=== PATIENT | female | born 1945 | race Caucasian/White ===

== ENCOUNTER 2023-03-29 10:11 | Day surgery (SDC) | payer MEDICARE, SELFPAY ==
[2023-03-22 08:37] VITALS: BMI 26.3
[2023-03-29] VITALS (10 sets, daily range): BP systolic 102–128; BP diastolic 33–51; PULSE 38–88; RESP 12–18; TEMP 35.9–36.6; O2SAT 93–99; BMI 25.6; BMI 27.9
--- NOTE | 2023-03-29 | DI.RAD.S_ITS ---
PROCEDURE: XR FOOT RT MIN 3V INDICATIONS: ORIF OF RIGHT FOOT TECHNIQUE: 12 intraoperative fluoroscopic images of the foot were acquired. COMPARISON: None. FINDINGS: Bones: Intraoperative fluoroscopic images of right ankle fixation demonstrate appropriate positioning. Soft tissues: No tibiotalar joint effusion. Achilles tendon appears normal. IMPRESSION: Intraoperative fixation of right ankle using plate and screw construct. Please see separate operative report for full details. Approved by: Laverne Landers M.D. on 03/29/2023 at 17:50
[2023-03-29] MEDS: LACTATED RINGERS 1,000 ML 42 ML IV ×4 (10:34→23:16)
--- NOTE | 2023-03-29 12:15 | PM.PREOP ---
Pre-operative Note Interval Note History & Physical reviewed/Exam performed by Physician: Yes Changes to H&P: No
--- NOTE | 2023-03-29 12:34 | P.HP_ITS ---
History of Present Illness History of Present Illness Date Patient Seen: 03/29/23 Time Patient Seen: 12:08 Chief complaint: Right Toe Fusion/Ankle Fusion/Achilles Tendon Verónica Narrative: PATIENT IS A 77-YEAR-OLD FEMALE THAT PRESENTS WITH A [id number] CH ARCOT FOOT DEFORMITY AND CHARCOT NEURO ARTHROPATHY. SHE IS CALLUSES AND HAS HAD ULCERATIONS THAT HAVE BEEN TREATED WOUND CARE AND THAT REOCCUR CONSISTENTLY. SHE WAS FRUSTRATED THAT THESE KEEP RECURRING. THE RIGHT SIDE HAS BEEN ESPECIALLY PROBLEMATIC. CALLUS IS CURRENTLY CLOSED. NO SIGNS OF INFECTION. SHE WAS INDICATED FOR CHARCOT RIGHT FOOT RECONSTRUCTION. HER HEMOGLOBIN A1C IS UNDER 7. [facility] Medical History (Updated 03/29/23 @ 12:37 by Ailyn Christine MD) Pes planus of right foot Arthritis of right foot Charcot's arthropathy History of breast cancer HTN (hypertension) Diabetes mellitus, type II Surgical History History of cholecystectomy Hx of lumpectomy Social History household members: spouse Smoking Status: Never smoker alcohol intake: never Meds Home Medications and Allergies Home Medications Medication Instructions Recorded Confirmed Type amlodipine 2.5 mg tablet 2.5 mg PO BID 03/22/23 03/29/23 History aspirin 81 mg capsule 81 mg PO DAILY 03/22/23 03/29/23 History gabapentin 600 mg tablet 600 mg PO TID 03/22/23 03/22/23 History ibuprofen 200 mg tablet (Advil) 400 mg PO BEDTIME 03/22/23 03/29/23 History insulin glargine 100 unit/mL (3 50 unit SUBCUT QAM 03/22/23 03/29/23 History mL) subcutaneous pen (Lantus Solostar U-100 Insulin) insulin lispro 100 unit/mL 15 unit SUBCUT TID 03/22/23 03/29/23 History subcutaneous pen losartan 100 mg tablet 100 mg PO QPM 03/22/23 03/29/23 History rosuvastatin 20 mg tablet 20 mg PO QPM 03/22/23 03/29/23 History zolpidem 10 mg tablet 10 mg PO BEDTIME 03/22/23 03/29/23 History Allergies Allergy/AdvReac Type Severity Reaction Status Date / Time No Known Drug Allergies Allergy Verified 03/29/23 10:36 Review of Systems Review of Systems Narrative: DIABETES IS CONTROLLED. SHE HAS NEUROPATHY. SHE DOES NOT SMOKE SHE DOES NOT USE ALCOHOL. ROS: Yes All systems reviewed with the patient and are negative except as otherwise documented Exam Vital Signs (past 8 hours): - 03/29/23 11:02 Temperature 97.1 F L Pulse Rate 87 Respiratory Rate 18 Blood Pressure 128/51 L Pulse Oximetry 99 Oxygen Delivery Method Room Air Oxygen Delivery Method Room Air Narrative Exam Narrative: VITAL SIGNS ARE DOCUMENTED IN THE CHART ARE WITHIN NORMAL LIMITS. GENERAL EXAM NO OBVIOUS DISTRESS NORMAL AFFECT. HEENT EXAM NORMOCEPHALIC ATRAUMATIC HEART REGULAR RATE AND RHYTHM RESPIRATORY LUNGS CLEAR TO AUSCULTATION BILATERALLY. GAIT IS FULL WEIGHT-BEARING NO ASSISTIVE DEVICES. RIGHT LOWER EXTREMITY DEMONSTRATES RIGHT GREATER THAN LEFT ABDUCTION AND PES PLANUS DEFORMITY WITH A ROCKER BOTTOM CENTERED AT THE 1ST TMT JOINT. THERE IS A HEALED ULCERATION JUST REMAINS A CALLUS. THERE IS NO ERYTHEMA THERE WAS NO SIGN OF INFECTION. THERE HAS A PALPABLE DORSALIS PEDIS PULSE. THERE IS HINDFOOT VALGUS AND HINDFOOT STIFFNESS LESS THAN 50% OF NORMAL MOTION. THERE IS NO ASCENDING CELLULITIS. THE CALF IS SOFT. THERE IS EQUINUS CONTRACTURE. THERE IS UNCHANGED PERIPHERAL NEUROPATHY AND A STOCKING-GLOVE DISTRIBUTION. Objective Imaging X-RAY FOOT: My impression: PREVIOUS X-RAYS OF THREE VIEWS OF BILATERAL FEET AP STANDING AND OBLIQUE AND LATERAL DEMONSTRATE RIGHT FOOT CHARCOT ARTHROPATHY 1ST TMT ARTHRITIS AND ABDUCTION DEFORMITY WITH SEVERE PES PLANUS DEFORMITY AND HINDFOOT INVOLVEMENT. NO ACUTE FRACTURES. Assessment & Plan Assessment and plan (1) Pes planus of right foot: Status: Acute (2) Charcot's arthropathy: Problem details: Bilateral Status: Acute Plan PATIENT HAS RIGHT FOOT CHARCOT DIABETIC NEUROPATHY AND FOOT DEFORMITY WITH RIGHT FOOT ARTHRITIS. SHE IS INDICATED FOR SURGICAL CORRECTION OF HER FOOT DEFORMITY DUE TO RECURRENT ULCERS. PLAN FOR DENIED HOSPITAL STAY. ROCKER BOTTOM DEFORMITY. NO EVIDENCE OF INFECTION. HAS SPENT MOST OF THE LAST YEAR OFFLOADING WOUND CARE WITHOUT SUCCESS. INDICATED FOR DEFORMITY CORRECTION. SHE IS FAILED CUSTOM ORTHOTICS OFFLOADING AND WOUND CARE. SURGICAL RECONSTRUCTION WOULD INCLUDE DEFORMITY CORRECTION WITH FUSION AND WEDGE RESECTION. DUE TO SEVERE PES PLANUS WOULD PLAN FOR INVOLVEMENT OF HINDFOOT AND INCORPORATE TRIPLE ARTHRODESIS. THE RISKS AND BENEFITS OF THE PROCEDURE HAVE BEEN DISCUSSED WITH THE PATIENT AND GIVEN THE OPPORTUNITY TO ASK QUESTIONS. THE RISKS OF SURGERY INCLUDE BUT ARE NOT LIMITED TO INFECTION, MALUNION, NONUNION, PERSISTENCE OF PAIN, DAMAGE TO NERVES AND BLOOD VESSELS, POSTTRAUMATIC ARTHRITIS, DVT, PE, COARDIOPULMONARY COMPLICATIONS AND . THE PATIENT EXPRESSED A THOROUGH UNDERSTANDING OF THE RISKS AND BENEFITS OF SURGERY AND HAS ELECTED TO PROCEED. CONSENT WAS SIGNED. DVT PROPHYLAXIS WILL BE ASPIRIN 325 MG DAILY FOR 6 WEEKS. Quality VTE Deep Vein Thrombosis/Pulmonary Embolism Present on Admission: No
[2023-03-29] MEDS: CEFAZOLIN 2 GM/100 ML PREMIX 100 ML IV ×2 (12:51→16:40)
[2023-03-29] MEDS: BUPIVACAINE 0.25% (PF) 30 ML, EPINEPHrine 0.15 MG INJ (13:25)
--- NOTE | 2023-03-29 13:30 | SUR.OPER ---
Supine on padded OR bed, head on pillow, arms secured on padded arm boards at <90 degrees abduction, legs uncrossed, safety belt across abdomen, tape over blanket over nonoperative leg, bump under operative hip.
--- NOTE | 2023-03-29 17:47 | PM.OP.1 ---
Operative Date/Time/Diagnoses Date of procedure: 03/29/23 Time of procedure: 13:05 Pre-op diagnosis: Diabetic Charcot right foot pre ulcerative callus, arthritis right foot, pes planus right foot, equinus contracture right ankle, Charcot joint right foot Post-op diagnosis: same Procedure & Clinicians Procedure: 1. Talocalcaneal and talonavicular fusions, right CPT code 67439 2. Fusion tarsometatarsal joints 2 or more with osteotomies CPT code 06863, right 3. Tendo-Achilles lengthening 79234 right modifier 59 for separate site 4. Paring callus, single CPT code 88122 modifier 59 for separate site Same procedure as scheduled: Yes Indications: Patient 77-year-old female with neuropathic arthropathy, Charcot of the right foot diabetes. She has a foot deformity and recurrent ulcerations. This is a rocker deformity with severe pes planus. She has failed custom orthotics offloading and wound care. She was spent most of the last year offloading. She is indicated for surgical reconstruction to include deformity correction with fusion and wedge resections. Due to her severe pes planus and involvement of the hindfoot would plan to incorporate triple arthrodesis into this to reduce the risk of recurrence while helping to fully correct the pes planovalgus and abduction deformities. Her hemoglobin A1c is controlled and is now below 7. She has an equinus contracture and Achilles lengthening would also be indicated. She understands she would require a minimum of 3 months of nonweightbearing. The patient was optimized for surgery. The risks benefits and alternatives were discussed. These included but are not limited to infection, nonunion malunion, persistent pain, wound healing problems, amputation, DVT, pulmonary embolism, stroke, paralysis, , symptomatic hardware. The patient elected to proceed and consent was signed. During the operation, the services of a physician events and promotions assistant were medically indicated and necessary to provide the exposure of the operative site for the surgical procedure and to maintain the limb in a proper position to carry out the operation safely and efficiently. Without a qualified medical assistant internal medicine being present this would extended the operative procedure and made the procedure technically more difficult to perform. Surgeon: Ailyn Christine Distribution Estimator: Hernan Trevino Anesthesia Type: General, Peripheral nerve block and Local Operative Notes Findings: Pes planus and abduction deformity consistent with Charcot arthropathy. Hindfoot less than 50% of normal subtalar motion severe plus planus. Healed 1st TMT ulceration now with a preulcerative callus. No signs of current infection. Closure Type: primary Specimen(s): none sent Prosthetic devices, grafts, tissues, transplants, or devices: Hebron 28 Medium gorilla plumbing drafter, straddled plate and 3.5 nonlocking and locking screws [place] 28 just bolt 7.2 solid fully-threaded 140 mm [place]bron 28 7.0 monster headed fully-threaded cannulated screw 74 mm Applied: other (Splint) Estimated Blood Loss (mL): 50 Blood products transfused: none Tourniquet time (min): 120 Procedure in detail: Patient was seen in the preoperative area the site of surgery was marked informed consent confirmed. A regional nerve block was placed by the anesthesia team for postoperative pain control. The patient was brought back to the operating room by the anesthesia team positioned supine on operative table. A Sanchez catheter was placed and removed at the end of the procedure. All bony prominences were well padded. A well-padded thigh tourniquet was applied. An ipsilateral thigh bump was applied. The right lower extremity was prepped and draped in standard sterile fashion a formal time-out procedure was performed confirming the patient's side and site of surgery administration of appropriate preoperative antibiotic. All were in agreement. In addition the antibiotic was appropriately re-dosed. Attention was 1st turned to the tendo-Achilles lengthening. Tendo-Achilles lengthening: The leg was elevated 3 small incisions were marked out on the Achilles near the insertion 2 cm proximal to that and another 2 cm proximal to that. Small incision was made the tendon then was identified. A 15 blade was inserted into the center of the tendon and a yobany section was made to the lateral side in the distal and the proximal most incisions. The central incision created a yobany section to the medial side. The ankle was dorsiflexed providing an audible and palpable stretch to the Achilles which increased dorsiflexion preprocedure to less than 5? dorsiflexion to 20?. Talocalcaneal and talonavicular fusion and tarsometatarsal fusions with wedge osteotomies: Attention was then turned to the leg the Esmarch was used for exsanguination and elevated the tourniquet on the thigh to 250 mmHg the stayed elevated for 2 hours then was released and remained down the rest of the case. First incision was made along the sinus tarsi from the tip of the fibula towards the 4th metatarsal base this was taken down through the skin and subcutaneous tissues. The extensor brevis was elevated exposing the sinus tarsi. The peroneal tendons were retracted distally. A osteotome and curette were used to remove the cartilage from the posterior facet of the subtalar joint additionally the power rasp was used to help debride the joint as well. Once this was completely denuded of cartilage and good bleeding cancellous bone was apparent the area was fenestrated using the fenestrated drill and DBM putty was placed along the posterior facet. Subtalar joint was reduced with care elevating the talus and was pinned in place and checked on multiplanar fluoroscopy then a separate incision at the heel was made for the 7.0 monster screw. This was positioned checked on multiplanar imaging and then overdrilled and a fully threaded 7.0 screw was placed in a lag technique for the subtalar joint fixation. The wound was closed in layers at the end of the case. Attention was then turned medially and a long medial incision was made from the tip of the medial malleolus to the mid shaft of the 1st metatarsal between the tibialis anterior and tibialis posterior this was taken down through the skin subcutaneous tissue down to the level of bone. The talonavicular joint navicular cuneiform joint and cuneiform metatarsal joints were identified and individually debrided using the K-wire retractor curette osteotomes and power rasp. Once the talonavicular joint was prepared down to bleeding bone and good DBM putty was placed the uncoverage of the talus was corrected and the talonavicular joint was pinned confirming this on the AP and lateral planes to be elevated and the abduction corrected. Next attention was turned distally to the navicular cuneiform and to the tarsometatarsal joints and navicular cuneiform joint was prepped in the same fashion as the talonavicular joint. The apex of the deformity was at the tarsometatarsal joints so a saw was used to remove a plantar and medial based wedge across the distal medial cuneiform 2 into the 2nd TMT joint and across the base of the 1st and 2nd tarsometatarsal joints. Pituitaries used to remove the wedge of bone additional debridement was completed with osteotomes curette and the power rasp. The wedge resection was reduced and pinned in place and confirmed on multi planer fluoroscopy to confirm correction of the abduction and a neutral Lydia's angle from the 1st metatarsal to the talus. DBM putty was then placed into these joints and they were pinned. Next the paragon jig for the jaw cyst and straddled plate was assembled after several attempts to run the jowls toward the talar pin from the jig the jig was abandoned and removed. Under freehand technique the guidewire for the jowls was advanced from an incision along the plantar 1st toe through the metatarsal head and medial column and into the talus. Care was taken during this procedure to protect the long flexor to the great toe and this was retracted out of the way. Once the trajectory was appropriate straight through the 1st metatarsal to the medial column into the talus this was then over-drilled and the 7.0 solid just screw was advanced the transfixing K-wires were removed as the Jobst screw was advanced. Once this was completed a medium straddle plate was then repositioned and centered on the just medially confirming there were screw holes into the talus the entire medial column and then into the 1st metatarsal. This was pinned in place and secured to the bone 1st with nonlocking and then with locking 3.5 screws. This created additional fixation across the talonavicular navicular cuneiform and 1st and 2nd tarsometatarsal joints. Fixation was excellent additional bone graft was packed around the edges. The power rasp was used to smooth off some dorsal and plantar osteophytes and final radiographs were taken. The wounds were irrigated and closed with 2-0 Vicryl 4-0 Monocryl and 3-0 nylon suture. Callus paring Next attention was turned to the 1st TMT plantar callus the thick area of callus was pared using a 15 blade at the end of the case removing the thickened callus tissue. No bleeding was encountered. There was a small old central hemorrhagic area. No full-thickness wounds. The wounds were irrigated again the leg was washed 20 cc of local anesthetic was infiltrated for postoperative pain control. A sterile dressing with Xeroform gauze and Webril was applied. A bulky Astorga splint was applied in neutral position. Patient was awoken from anesthesia and taken to recovery room in good condition. There were no immediate complications from this procedure. All counts were correct. Complications: none Post-operative Condition: stable Disposition: PACU Plan for aftercare: Nonweightbearing x3 months. Elevate and ice. Aspirin 325 mg daily for DVT prophylaxis x6 weeks. Will stay overnight due to length of surgery /anesthesia and inclement weather and plan discharge home
[2023-03-29] MEDS: INSULIN LISPRO 100 UNIT/ML 3ML VIAL SUBCUT (17:49)
[2023-03-29] MEDS: ACETAMINOPHEN 325 MG TABLET 650 MG PO (18:26)
[2023-03-29] MEDS: SENNOSIDES 8.6 MG TABLET 17.2 MG PO (20:48)
[2023-03-29] MEDS: AMLODIPINE 5 MG TABLET 2.5 MG PO (20:48)
[2023-03-29] MEDS: ATORVASTATIN 20 MG TABLET 40 MG PO (20:48)
[2023-03-29] MEDS: GABAPENTIN 600 MG TABLET PO (20:48)
[2023-03-29] MEDS: DOCUSATE 100 MG CAPSULE PO (20:49)
[2023-03-29] MEDS: SODIUM CHLORIDE 0.9% 1,000 ML 1000 ML IV (21:51)
[2023-03-29] MEDS: IBUPROFEN 400 MG TABLET PO (21:55)
[2023-03-30] MEDS: ACETAMINOPHEN 325 MG TABLET 650 MG PO ×2 (00:29→12:29)
[2023-03-30] MEDS: ZOLPIDEM 5 MG TABLET 10 MG PO (00:29)
[2023-03-30] MEDS: CEFAZOLIN 2 GM/100 ML PREMIX 100 ML IV ×2 (00:30→08:16)
[2023-03-30 00:54] VITALS: BP 104/39; PULSE 58; RESP 16; TEMP 36.5; O2SAT 96
[2023-03-30 04:27] VITALS: BP 105/49; PULSE 74; RESP 16; TEMP 36.9; O2SAT 96
[2023-03-30 05:29] LABS: Hematocrit 39.1 % (36-46); Hemoglobin 12.7 g/dL (12.0-16.0); Mean Corpuscular HGB Conc 32.5 % (30-36); Mean Corpuscular Hemoglobin 30.1 PG (26-34); Mean Corpuscular Volume 92.4 fL (80-100); Platelet Count 255 X10^3/uL (150-400); Red Blood Cell Count 4.23 X10^6/uL (4.0-5.2); Red Cell Distribution Width 15.1 % (11.6-14.8); White Blood Cell Count 17.4 X10^3/uL (4.5-11.0)
[2023-03-30 05:41] LABS: Alanine Aminotransferase 36 IU/L (<35); Albumin 3.2 g/dL (3.5-5.0); Albumin Globulin Ratio 1.2 (1.0-2.8); Alkaline Phosphatase 55 U/L (38-126); Aspartate Aminotransferase 31 IU/L (14-36); BUN Creatinine Ratio 37.5 (6-22); Bilirubin Total 0.5 mg/dL (0.2-1.3); Blood Urea Nitrogen 21 mg/dL (7-17); Calcium 9.9 mg/dL (8.4-10.2); Carbon Dioxide 24 mmol/L (22-32); Chloride 104 mmol/L (98-107); Estimated Glomerular Filt Rate > 60 mL/min (>60); Globulin 2.7 g/dL (1.7-4.1); Glucose 169 mg/dL (80-110); HEMOLYSIS 19 (0-50); Potassium 4.5 mmol/L (3.4-5.1); Sodium 134 mmol/L (137-145); Total Protein 5.9 g/dL (6.3-8.2)
--- NOTE | 2023-03-30 07:33 | PM.DS.1 ---
History of Present Illness History of Present Illness Chief complaint: Right Toe Fusion/Ankle Fusion/Achilles Tendon Verónica Narrative: TODAY: Patient is POD#1 s/p Right Talocalcaneal and talonavicular fusion, Tendo-Achilles lengthening and tarsometatarsal joint fusion by Dr. Christine. Patient states she is doing well overall, no pain currently. Has been able to urinate on her own. Expresses eagerness to d/c to home today. Has at home to help with her post-op care, also reports her sister who is a nurse is planning to come stay with her for a short period of time during her recovery as well. Has walker and knee scooter at home to use for ambulation support while she is NWB in her post-op recovery period. Denies chest pain, SOB, fever, chills, nausea, vomiting. Operative Date/Time/Diagnoses Date of procedure: 03/29/23 Time of procedure: 13:05 Pre-op diagnosis: Diabetic Charcot right foot pre ulcerative callus, arthritis right foot, pes planus right foot, equinus contracture right ankle, Charcot joint right foot Post-op diagnosis: same Procedure & Clinicians Procedure: 1. Talocalcaneal and talonavicular fusions, right CPT code 52604 2. Fusion tarsometatarsal joints 2 or more with osteotomies CPT code 93416, right 3. Tendo-Achilles lengthening 08656 right modifier 59 for separate site 4. Paring callus, single CPT code 71674 modifier 59 for separate site Same procedure as scheduled: Yes Discharge Providers Provider Discharge Date: 03/30/23 Primary care physician: Miladys Hunt PA-C Consults: 03/22/23 12:46 Consult to Anesthesiology Routine Comment: Consulting Provider: Anesthesiologist Reason for consultation: PAC courtesy re: Abnormal Pre-op EKG 03/26/23 14:37 Consult to Anesthesiology Routine Comment: Consulting Provider: Anesthesiologist Reason for consultation: Post operative pain managment 03/29/23 17:58 Consult to Discharge Planning Routine Comment: Consult to Physical Therapy Evaluate & Treat Comment: Physician Instructions: Evaluate and Treat Discharge provider: Haven Suresh PA-C Summary Hospital Course Discharge Diagnosis: Diabetic Charcot right foot pre ulcerative callus, arthritis right foot, pes planus right foot, equinus contracture right ankle, Charcot joint right foot s/p right Talocalcaneal and talonavicular fusion, Tendo-Achilles lengthening and tarsometatarsal joint fusion Hospital Course: Uncomplicated hospital course Exam Vital Signs (past 8 hours): - 03/30/23 00:54 03/30/23 04:27 Temperature 97.7 F 98.4 F Pulse Rate 58 L 74 Respiratory Rate 16 16 Blood Pressure 104/39 L 105/49 L Pulse Oximetry 96 96 Oxygen Flow Rate 0 0 Oxygen Delivery Method Room Air Oxygen Flow Rate 0 Const General: cooperative and comfortable Resp Effort & Inspection: normal respiratory effort and able to speak in complete sentences Cardio Rate: regular rate Skin General: no rashes or lesions noted Other: Bulky Astorga splint in neutral position in place over patients right ankle and foot. Neuro General: patient alert, patient awake and patient oriented x3 Extrem Other: Able to wiggle all toes, admits to slightly decreased sensation to light touch in toes which she states is not worse from her baseline foot neuropathy. Calves soft and non-tender bilaterally. Psych Speech and Movement: speech and movement normal Attitude: cooperative Objective Labs 03/30/23 05:19 03/30/23 05:19 Labs: Laboratory Results - last 24 hr 03/30/23 05:19 WBC 17.4 H RBC 4.23 Hgb 12.7 Hct 39.1 MCV 92.4 MCH 30.1 MCHC 32.5 RDW 15.1 H Plt Count 255 Sodium 134 L Potassium 4.5 Chloride 104 Carbon Dioxide 24 BUN 21 H Creatinine 0.56 Estimated GFR > 60 BUN/Creatinine Ratio 37.5 H Glucose 169 H Calcium 9.9 Total Bilirubin 0.5 AST 31 ALT 36 H Alkaline Phosphatase 55 Total Protein 5.9 L Albumin 3.2 L Globulin 2.7 Albumin/Globulin Ratio 1.2 [facility] Medical History (Updated 03/29/23 @ 12:37 by Ailyn Christine MD) Pes planus of right foot Arthritis of right foot Charcot's arthropathy History of breast cancer HTN (hypertension) Diabetes mellitus, type II Surgical History History of cholecystectomy Hx of lumpectomy Social History household members: spouse Smoking Status: Never smoker alcohol intake: never Discharge Assessment & Plan Assessment and Plan Assessment: Stable s/p Right Talocalcaneal and talonavicular fusion, Tendo-Achilles lengthening and tarsometatarsal joint fusion by Dr. Christine. Plan of Treatment: -Plan to d/c to home today pending PT evaluation. -Non weight bearing to the right foot for 3 months -Continue multomodal pain management, elevation, ice. -Continue Aspirin 325 mg daily for DVT prophylaxis x6 weeks. -Follow up at [facility] in 2-3 weeks for post-op appt Discharge Plan Discharge Plan Patient Disposition: Home Provider Discharge Comment: Aspirin 325 mg daily for 6 weeks for blood clot prevention. Follow up at [facility] 04/18/[address] Christine. Discharge orders & Medications Discharge Orders: Discharge (Order); Ordered 03/30/23 Ordered By: Haven Suresh Prescriptions: New acetaminophen 325 mg Tablet 650 mg PO Q6H Qty: 120 0RF aspirin 325 mg Tablet,Delayed Release (Dr/Ec) 325 mg PO DAILY Qty: 90 0RF ondansetron 4 mg Tablet,Disintegrating 4 mg PO Q4HR PRN (Reason: Nausea And Vomiting) Qty: 20 0RF oxycodone 5 mg Tablet 5 mg PO Q4-6H PRN (Reason: Pain, Moderate (4-6)) Qty: 40 0RF Continued gabapentin 600 mg Tablet 600 mg PO TID amlodipine 2.5 mg Tablet 2.5 mg PO BID ibuprofen [Advil] 200 mg Tablet 400 mg PO BEDTIME zolpidem 10 mg Tablet 10 mg PO BEDTIME losartan 100 mg Tablet 100 mg PO QPM insulin lispro 100 unit/mL Insulin Pen 15 unit SUBCUT TID rosuvastatin 20 mg Tablet 20 mg PO QPM insulin glargine [Lantus Solostar U-100 Insulin] 100 unit/mL (3 mL) Insulin Pen 50 unit SUBCUT QAM aspirin 81 mg Capsule 81 mg PO DAILY Follow up/Referrals: Ailyn Christine MD [Physician] - 04/18/23 1:30 pm (appt:04/18 @ 1:[address] Christine @ [facility] [place] ) Miladys Hunt PA-C [Primary Care Provider] - Diet/Activity/Treatments Diet: Diet as Tolerated Activity: Nonweightbearing x3 months. Cold/Heat Therapy: Elevate and ice for pain control. Skin/Wound/Dressing Care Report to your healthcare provider any signs of infection, such as:: chills, fever, night sweats, unusual drainage and unusual redness Dressing: Keep dressing clean, dry and intact until post-op appt at [facility]. Visit Report/Discharge Packet Instructions: DI for Prescription Opioid Use, Ondansetron, Oxycodone Stand Alone Forms: Patient Portal/API Discharge Data Primary Care Provider: Miladys Hunt Attending Provider: Ailyn Christine VTE Deep Vein Thrombosis/Pulmonary Embolism Present on Admission: No
[2023-03-30] MEDS: GABAPENTIN 600 MG TABLET PO (08:21)
[2023-03-30] MEDS: DOCUSATE 100 MG CAPSULE PO (08:21)
[2023-03-30] MEDS: INSULIN LISPRO 100 UNIT/ML 3ML VIAL SUBCUT ×4 (08:27→12:27)
[2023-03-30] MEDS: INSULIN GLARGINE 100 UNIT/ML 3ML PEN 40 UNIT SUBCUT (08:27)
[2023-03-30] MEDS: polyethylene glycoL 3350 17 GM POWD.PACK PO (08:30)
[2023-03-30] MEDS: AMLODIPINE 5 MG TABLET 2.5 MG PO (08:30)
--- NOTE | 2023-03-30 08:34 | CM.DANOTE ---
Initial DCP Assessment Visit Note Reviewed EMR for pt's medical status and updates. Pt found to be working with PT at the time of this visit, spouse was in the room for teaching. Payor: Medicare Attending: Dr. Christine Pt is a 77 year-old F with a PMH of bilateral foot deformities and bilateral Charcot arthropathy. Due to this condition, she has recurrent, difficult to heal wounds and callouses on her feet, the R-foot being the worst, and has needed routine woundcare for the last year. She's also tried orthodics and other modification measures with no lasting benefit. Pt is now post-op day-1 for surgery to correct the R-foot deformity with fusion post wedge resection. She has a knee scooter for post-surgery mobility, and her spouse will plan to provide for care and ADL assistance. Spouse will also transport home. No further DCP needs identified at this time. Discharge Planning/Care Management CM Discharge Assessment Start: 03/30/23 08:26 Freq: Status: Active Protocol: Document 03/30/23 08:26 DPL (Rec: 03/30/23 08:34 DPL [id number]) Discharge Planning Assessment Assigned Senior Manager Quality Assurance CECILE Lincoln Advance Directives? Yes Advance Directives on File No History Provided By Patient,Medical Record Has Patient been admitted in last 30 No days? Prior Living Arrangements House Household Members spouse Type of transporation used prior to Relies on Others admit Independent with ADL's Yes: Modified independent. Needs Assistance With Home Chores / Shopping Caregiver for Another No Community Services used prior to Wound Care admission: Comment Pt has required wound care for the last year due to persistent, recurring wounds. Comment Pt had a knee scooter. Patient/Family Preference OP PT Therapy Barriers to Discharge No Discharge Plan Home Community Services Physical Therapy Transportation Arrangement Spouse Referrals Initiated None needed Whiteboard Updated in Patient Room with Yes name and ext. # of Senior Manager Quality Assurance Review Status In Process Please Provide Date Initial DC 03/29/23 Assessment Was Performed Pre-Anesthesia Assessment Start: 03/22/23 08:37 Freq: Status: Complete Protocol: Document 03/22/23 08:37 CAB (Rec: 03/22/23 08:46 CAB [id number]) Pre-Anesthesia Assessment Patient Information Reviewed Via Chart Review,Phone Assessment Diagnostic Results BMP/CMP,CBC,EKG Comment Outside labs/EKG scanned Primary Care Provider Miladys Hunt Seen Specialist in Last 12 Months Yes Specialist Seen Orthopedist Primary Language Citizen Of [place] Tongue Lining Stitcher Required No Height 172.72 cm Weight 78.471 kg Body Mass Index (BMI) 26.3 Barriers to Learning None Anesthesia Review Requested Yes: PAC courtesy re:Abnormal pre-op EKG Php Programmer No Patient is completely paralyzed or No completely immobile Mental Status Oriented to own ability Does patient have LEWIS/SOB No Hx Sleep Apnea No Currently Taking a Beta Kalin No Can You Climb a Flight of Stairs Without Yes SOB Hx Chest Pain No Hx SOB No Hx Syncope or Dizziness No Anti-Coagulant Therapy No Has a Manager Pediatric No Cardiac Testing No Hx Pacemaker/ICD No Pacemaker Rep Required? No Cardiac Clearance Received Not Applicable Urinary Catheter Present No Hx Urinary Self Catheterization No Diabetes Yes Patient No Lactating No Patient Discharge Plan Description Return Home
[2023-03-30] MEDS: ASPIRIN EC 325 MG TABLET PO (08:36)
[2023-03-30 09:05] VITALS: BP 126/50
--- NOTE | 2023-03-30 10:31 | PT.IIE ---
Current Diagnoses Polyneuropathy in diseases classified elsewhere (03/29/23) Non-pressure chronic ulcer of other part of right foot limited to breakdown of skin (03/29/23) Charcot's joint, unspecified site (03/29/23) Charcot's joint, right ankle and foot (03/29/23) Charcot's joint, left ankle and foot (03/29/23) Flat foot [pes planus] (acquired), right foot (03/29/23) Surgery Performed Operation Date: 03/29/23 11:45 Actual Procedures p foot deformity correction with tarsometatarsal fusion multiple with osteotomy wedge resection, Achilles tendon lengthening, excisional debridement, talonavicular and subtalar fusion(Right) - Ailyn Christine MD s Achilles Tendon Lengthening(Right) - Ailyn Christine MD Surgical History (Last Reviewed 03/29/23 @ 12:35 by Ailyn Christine MD) History of cholecystectomy Hx of lumpectomy Medical History (Last Updated 03/29/23 @ 12:37 by Ailyn Christine MD) Arthritis of right foot Charcot's arthropathy Diabetes mellitus, type II History of breast cancer HTN (hypertension) Pes planus of right foot Physical Therapy Inpatient Evaluation/Re-Eval M1 PT/OT-IP Prior Functional Status Start: 03/30/23 09:34 Freq: NEEDED Status: Active Protocol: Document 03/30/23 08:50 NM (Rec: 03/30/23 10:27 NM [id number]) Medical Review Prior Functional Status Medical History Reviewed Yes Mobility and Gait Uses knee walker/leg scooter, 4WW prn prior to admit Activities of Daily Living and IADL's Independent Social History Household Members spouse Living Arrangements House Number of Floors (Floors) Two Floors Number of Stairs To Enter/Railing? 3 stairs at front to enter, rail on L side; 2 stairs in garage to enter, rail on L side Home Environment Narrow Doors Home Equipment Front Wheel Walker,Four Wheel Walker Additional Social History Comment Pt able to use knee walker/ scooter for mobility in home except bathrooms, which are too narrow to maneuver M2 PT-IP Current Condition Start: 03/30/23 09:34 Freq: NEEDED Status: Active Protocol: Document 03/30/23 08:50 NM (Rec: 03/30/23 10:27 NM [id number]) Physical Therapy Current Condition Current Condition Evaluation Date 03/30/23 Treatment Diagnosis s/p R charcot deformity repair , ankle fusion, achilles lengthening M3 PT-IP Subjective Start: 03/30/23 09:34 Freq: NEEDED Status: Active Protocol: Document 03/30/23 08:50 NM (Rec: 03/30/23 10:27 NM [id number]) Subjective Physical Therapy Visit Type Type Initial Evaluation Visit Start Time 08:05 Visit Stop Time 08:50 Total Visit Minutes 45 Physical Therapy Visit Comments Patient Comments Pt found sitting up in bed, eating breakfast with RLE elevated. present. Agrees to participate in evaluation Therapy Pain Assessment Pain When Pain Assessed After Treatment Pain Present Pain Present Pain Reported Location R foot Intensity 1 Scale Used Numeric (0 - 10) Description Aching Pain Management Techniques Elevation,Re-positioning M4 PT-IP Mobility and Gait Start: 03/30/23 09:34 Freq: NEEDED Status: Active Protocol: Document 03/30/23 08:50 NM (Rec: 03/30/23 10:27 NM [id number]) PT-Bed Mobility Assessment Rolling Type of Rolling Roll to Right Level of Assist Independent Supine to Sit Supine to Sit Independent Scooting Scooting to Edge of Bed Independent Scooting Up and Down in Bed Independent PT-Transfer Assessment Sit to and From Stand Sit to and from Stand Contact Guard Assistance Equipment Transfer Assistive Device Gait Belt,Front Wheeled Walker Orthotic/Prosthetic Devices or Brace: Yes Transfers Transfer Destination Bed,Chair Transfer Technique Stand Step Pivot Transfer Ability Level of Assist Contact Guard Assistance Comments Mobility Comments Pt IND for bed mobility, transfer to EOB. PT educated pt on WB precautions for RLE, emphasizing NWB. Pt performed sit<>stand from EOB using FWW and CGA x2 reps. Transfer with step pivot to chair x3 ft with CGA and moderate cues to remain NWB and coordinating movement with FWW, hopping on LLE. Pt demos difficulty with hopping on LLE due similar deformity as RLE, painful; difficulty with L foot clearance. Cues to reach back to chair with 1 hand, other on FWW for support, CGA to sit. Vitals 126/50 mmHg, 96 spo2, 71 bpm seated in bed Gait Assessment Gait Gait Assistance Required: Standby Assistance Distance (Feet) 100 Able to Maintain Weight Bearing Status Yes During Gait Assistive Devices Assistive Device Gait Belt Factors Limiting Gait Function Factors Limiting Gait Function Decreased Strength,Poor Safety Awareness Comments Gait Comments Pt sit>stand CGA using FWW to stand with RLE NWB, then stand pivot on LLE to knee walker ( scooter), CGA to steady as pt places R knee on scooter to maintain NWB status. CGA for safety while pt able to using knee scooter for mobility, using LLE to propel x100 ft in younger then return to room. Pt transferred from knee scooter using FWW to chair with CGA to steady and minimal cues for safety. Stand >sit CGA with cues to feel for leg at chair prior to sitting and keep RLE NWB, control with eccentric lowering. PT positioned pt in chair next to bed with RLE elevated on pillow. Pt left sitting in bedside chair, leg elevated, call light within reach and chair alarm activated. RN present. Stair Climbing Assessment Comments Stair Climbing Comments Did not assess stairs due to pt fatigue and NWB status. PT-Balance Assessment Sitting Balance and Reactions Static Sitting Balance Ability Normal Dynamic Sitting Balance Ability Normal Standing Balance and Reactions Static Standing Balance Ability Good Dynamic Standing Balance Ability Fair Device Used FWW M5 PT-IP Objective Assessments Start: 03/30/23 09:34 Freq: NEEDED Status: Active Protocol: Document 03/30/23 08:50 NM (Rec: 03/30/23 10:27 NM [id number]) Orientation Orientation/Cognition Level of Alertness Alert Orientation Name,Age,Birthday,Place, Situation Language Function Ability No Deficits Noted Safety Awareness Understands Safety Issues Gross Range of Motion Upper Extremity ROM Assessment Within Functional Limits Lower Extremity ROM Assessment Right Impaired Impairments RLE NWB, in soft cast below knee Strength Upper Extremity Strength Assessment Within Functional Limits Shoulder 4/5 Elbow 4/5 Wrist 4/5 Hand 4/5 Lower Extremity Strength Assessment Right Impaired Hip LLE 4/5 MMT hip flex/abd/ext; RLE 3+/5 MMT Knee LLE 4/5 MMT knee flex/ext; RLE 3+/5 MMT knee flex/ext, no pain Ankle LLE 4/5 dorsiflex/plantarflex; RLE not tested d/t precautions,cast Comments Strength Comments LLE hip/knee strength> RLE hip /knee strength. Able to weight bear LLE only with UE support on FWW for balance. Functionally able to perform straight leg raise in bed BLE, move to EOB BLE to transfer without difficulty and maintaining WB precautions Coordination Assessment Gross Coordination Gross Coordination WNL Sensation Assessment Sensation Gross Sensation Right LE Impaired Comments Sensation Comments Reports decreased sensation RLE but able to wiggle toes RLE M6 PT-IP Treatment Start: 03/30/23 09:34 Freq: NEEDED Status: Active Protocol: Document 03/30/23 08:50 NM (Rec: 03/30/23 10:27 NM [id number]) Physical Therapy Treatment Education Education Provided Precautions,Weight Bearing Status,Safety Brace Education Caregiver Equipment Issued Equipment Type and Company Pt will need FWW, agreed to receive from hospital M7 PT-IP Assessment and Plan Start: 03/30/23 09:34 Freq: NEEDED Status: Active Protocol: Document 03/30/23 08:50 NM (Rec: 03/30/23 10:27 NM [id number]) PT Summary Assessment and Plan Potential Rehabilitation Potential Good Status of Condition at Evaluation Stable Summary Impairments Pain,ROM,Strength,Balance, Transfers,Gait,Activity Tolerance Assessment Summary Pt is s/p R charcot foot deformity repair, achilles tendon lengthening and fusion. She is currently NWB on RLE. Prior to admit, pt used a knee walker/leg scooter for mobility and has a 4WW at home . Currently, IND for bed mobility and CGA to steady and cue for transfers using FWW. During transfer to chair with FWW, pt has difficulty with L foot clearance and performing small hops even with UE support on FWW. CGA for gait with RLE on knee walker/leg scooter with LLE propelling while maintaining WB precautions. Pt has stairs at each entrance of home with a rail on ea side. However, due to difficulty with hopping on LLE during transfers, pt is likely to demo difficulty with stairs and maintaining NWB precautions. Pt's is insisting that he will build a ramp for her her to use to enter home with knee scooter prior to discharge. If pt discharges to home, would benefit from HHPT for strengthening. Depending on pt tolerance for stair training while maintaining NWB precautions, pt would benefit from brief stay at SNF for safety vs discharge home if decline BLS. Pt will need FWW for discharge to home as bathroom is narrow and she is unable to maneuver knee walker /scooter within their bathroom . Pt would benefit from skilled PT for further gait, transfer, and possible stair training to decrease fall risk and minimize caregiver burden . Goals Bed Mobility Goal Independent Transfer Goal Independent Gait Goal Standby Assistance Gait Distance 150 ft Other Goals Stairs x3 using LRAD, hand rail assist or shower chair and min A or better while maintaining weight bearing precautions Days to Meet Goals 5 Frequency of Treatment Frequency Of Treatment Twice a Day Treatment Plan Physical Therapy Treatment Plan Transfer Training,Gait Training,Therapeutic Exercise, Post Op Education,Discharge Planning Other Recommendations and Next Treatment Stair training, caregiver Focus training, transfers with FWW, lateral hopping with FWW for bathroom, strengthening exercises Precautions Other Precautions NWB RLE Weight Bearing Status Weight Bearing Status Non-Weight Bearing Recommendations To Nursing Amount of Assist Needed 1 Person Assist Discharge Recommendations PT Discharge Recommendations Home with Assistance,Home Health,Home vs SNF Other Discharge Recommendations If pt discharges to home, would benefit from HHPT for strengthening. Depending on pt tolerance for stair training while maintaining NWB precautions, pt would benefit from brief stay at SNF vs discharge home if decline BLS. Equipment Needed for Home Before FWW, possible shower chair ( Discharge transfers or for ADLs) Transportation Needs at Discharge Private Vehicle
--- NOTE | 2023-03-30 11:25 | PC.NURSE ---
Addendum entered by Tanika Mckeon R.N. 03/30/23 13:51: Patient will be discharging home now. Original Note: Patient has worked with physical therapy this morning. She denies pain. She has a splinted cast in place with alverto wrap on top. Blood Sugar this morning 169, insulin given and medications. is visiting patient. CMS and ppx2.
[2023-03-30 12:10] VITALS: BP 133/49; PULSE 64; RESP 18; TEMP 36.6; O2SAT 96
--- NOTE | 2023-03-30 12:50 | PT.IPTN ---
Current Diagnoses Polyneuropathy in diseases classified elsewhere (03/29/23) Non-pressure chronic ulcer of other part of right foot limited to breakdown of skin (03/29/23) Charcot's joint, unspecified site (03/29/23) Charcot's joint, right ankle and foot (03/29/23) Charcot's joint, left ankle and foot (03/29/23) Flat foot [pes planus] (acquired), right foot (03/29/23) Surgery Performed Operation Date: 03/29/23 11:45 Actual Procedures p foot deformity correction with tarsometatarsal fusion multiple with osteotomy wedge resection, Achilles tendon lengthening, excisional debridement, talonavicular and subtalar fusion(Right) - Ailyn Christine MD s Achilles Tendon Lengthening(Right) - Ailyn Christine MD Physical Therapy Treatment Note M2 PT-IP Current Condition Start: 03/30/23 09:34 Freq: NEEDED Status: Active Protocol: Document 03/30/23 08:50 NM (Rec: 03/30/23 10:27 NM [id number]) Physical Therapy Current Condition Current Condition Evaluation Date 03/30/23 Treatment Diagnosis s/p R charcot deformity repair , ankle fusion, achilles lengthening M3 PT-IP Subjective Start: 03/30/23 09:34 Freq: NEEDED Status: Active Protocol: Document 03/30/23 13:23 TS (Rec: 03/30/23 13:32 TS [id number]) Subjective Physical Therapy Visit Type Type Treatment Note Visit Start Time 12:50 Visit Stop Time 13:15 Total Visit Minutes 25 Number of CORSETIER Visits 1 Physical Therapy Visit Comments Patient Comments Pt found resting in chair, spouse and sister in room for caregiver training. Pt agreeable to PT. M4 PT-IP Mobility and Gait Start: 03/30/23 09:34 Freq: NEEDED Status: Active Protocol: Document 03/30/23 13:23 TS (Rec: 03/30/23 13:32 TS [id number]) PT-Transfer Assessment Sit to and From Stand Sit to and from Stand Contact Guard Assistance Equipment Transfer Assistive Device Gait Belt,Front Wheeled Walker Orthotic/Prosthetic Devices or Brace: Yes Comments Mobility Comments Pt performed sit to stand CGA with FWW, maintained NWB on RLE. She performed steps x2 on 1 step Jarrett with BUE support resting on therapist and spouse. She performed steps x2 with sister and spouse Jarrett on 4 step, maintained NWB. Pt was left back in chair all needs met, preparing for d/c. Stair Climbing Assessment Evaluation Level of Assist On Stairs Minimal Assistance,1 Person Assistance Technique/Endurance Stair Climbing Direction Ascend and Descend Stair Climbing Technique Step to Step Number of Steps Climbed 4 Comments Stair Climbing Comments See mobility comments PT-Balance Assessment Sitting Balance and Reactions Static Sitting Balance Ability Normal Dynamic Sitting Balance Ability Normal Standing Balance and Reactions Static Standing Balance Ability Good Dynamic Standing Balance Ability Fair Device Used FWW M5 PT-IP Objective Assessments Start: 03/30/23 09:34 Freq: NEEDED Status: Active Protocol: Document 03/30/23 08:50 NM (Rec: 03/30/23 10:27 NM [id number]) Orientation Orientation/Cognition Level of Alertness Alert Orientation Name,Age,Birthday,Place, Situation Language Function Ability No Deficits Noted Safety Awareness Understands Safety Issues Gross Range of Motion Upper Extremity ROM Assessment Within Functional Limits Lower Extremity ROM Assessment Right Impaired Impairments RLE NWB, in soft cast below knee Strength Upper Extremity Strength Assessment Within Functional Limits Shoulder 4/5 Elbow 4/5 Wrist 4/5 Hand 4/5 Lower Extremity Strength Assessment Right Impaired Hip LLE 4/5 MMT hip flex/abd/ext; RLE 3+/5 MMT Knee LLE 4/5 MMT knee flex/ext; RLE 3+/5 MMT knee flex/ext, no pain Ankle LLE 4/5 dorsiflex/plantarflex; RLE not tested d/t precautions,cast Comments Strength Comments LLE hip/knee strength> RLE hip /knee strength. Able to weight bear LLE only with UE support on FWW for balance. Functionally able to perform straight leg raise in bed BLE, move to EOB BLE to transfer without difficulty and maintaining WB precautions Coordination Assessment Gross Coordination Gross Coordination WNL Sensation Assessment Sensation Gross Sensation Right LE Impaired Comments Sensation Comments Reports decreased sensation RLE but able to wiggle toes RLE M6 PT-IP Treatment Start: 03/30/23 09:34 Freq: NEEDED Status: Active Protocol: Document 03/30/23 13:23 TS (Rec: 03/30/23 13:32 TS [id number]) Physical Therapy Treatment Education Education Provided Precautions,Weight Bearing Status,Safety M7 PT-IP Assessment and Plan Start: 03/30/23 09:34 Freq: NEEDED Status: Active Protocol: Document 03/30/23 13:23 TS (Rec: 03/30/23 13:32 TS [id number]) PT Summary Assessment and Plan Potential Rehabilitation Potential Good Summary Impairments Pain,ROM,Strength,Balance, Transfers,Gait,Activity Tolerance Progress Towards Goals Progressing Toward Goals Assessment Summary Caroline is progressing well with her mobility. She is CGA for sit to stand with FWW form low surface of chair. She performed steps x2 on 1 and x2 on 4 step with BUE support around shoulders of spouse/ sister/therapist. She maintained NWB on RLE and demonstrated good strength hopping up to step. PT is recommending pt return home with assist. Goals Bed Mobility Goal Independent Transfer Goal Independent Gait Goal Standby Assistance Gait Distance 150 ft Other Goals Stairs x3 using LRAD, hand rail assist or shower chair and min A or better while maintaining weight bearing precautions Days to Meet Goals 5 Frequency of Treatment Frequency Of Treatment Twice a Day Treatment Plan Physical Therapy Treatment Plan Transfer Training,Gait Training,Therapeutic Exercise, Post Op Education,Discharge Planning Other Recommendations and Next Treatment Stair training, caregiver Focus training, transfers with FWW, lateral hopping with FWW for bathroom, strengthening exercises Precautions Other Precautions NWB RLE Weight Bearing Status Weight Bearing Status Non-Weight Bearing Recommendations To Nursing Amount of Assist Needed 1 Person Assist Discharge Recommendations PT Discharge Recommendations Home with Assistance,Home Health Other Discharge Recommendations If pt discharges to home, would benefit from HHPT for strengthening. Equipment Needed for Home Before FWW, possible shower chair ( Discharge transfers or for ADLs) Transportation Needs at Discharge Private Vehicle
== END 2023-03-30 13:45 | disposition home or self-care (01) ==
LOC: OR 10:16 → AC 10:17
PROVIDERS: Orthopaedic Surgery; PCP Physician Assistant Medical; Referring Provider Orthopaedic Surgery Foot and Ankle Surgery; Visit Provider Orthopaedic Surgery Foot and Ankle Surgery
PROC: (CPT 28725; principal; 2023-03-29 11:45)
PROC: (CPT 27685; 2023-03-29 11:45)
DX: E11.610 Type 2 diabetes mellitus with diabetic neuropathic arthropathy (principal); M24.571 Contracture, right ankle; M21.41 Flat foot [pes planus] (acquired), right foot; M19.071 Primary osteoarthritis, right ankle and foot; L97.511 Non-pressure chronic ulcer of other part of right foot limited to breakdown of skin; G89.18 Other acute postprocedural pain; M25.774 Osteophyte, right foot; L84 Corns and callosities
CPT/HCPCS: 28725; 27685; 28735; 11055; 36415; 64450; 73630; 76000; 80053; 82962; 85027; 97116; 97162; 97530; C1776; C1713; J0171; J0690; J1100; J1170; J1815; J2250; J2405; J2704; J3010

== ENCOUNTER 2024-10-16 09:30 | Day surgery (SDC) | payer MEDICARE, SELFPAY ==
[2023-03-29 18:04] VITALS: BMI 27.9
[2024-10-10 10:22] VITALS: BMI 23.7
--- NOTE | 2024-10-16 | DI.RAD.S_ITS ---
PROCEDURE: XR FOOT RT 2V INDICATIONS: Fusion of the first metatarsal phalangeal joint TECHNIQUE: 4 intraoperative digital images of the right forefoot were submitted were acquired. COMPARISON: [facility], , XR FOOT RT MIN 3V, 03/29/2023, 13:43. FINDINGS: Bones: There are no osseous abnormalities Joints: Arthrodesis across the 1st MTP provided by dorsal plate and screws show anatomic alignment. Arthrodesis across the 1st MTT , intercuneiform and navicular cuneiform joints also show anatomic alignment. Medial plate and screws provide arthrodesis. Soft tissues: No soft tissue abnormality. IMPRESSION: Postsurgical changes Dictated by: Calderon Fuentes M.D. on 10/17/2024 at 11:28 Approved by: Calderon Fuentes M.D. on 10/17/2024 at 11:29
[2024-10-16 12:23] VITALS: BP 168/82; PULSE 74; RESP 16; TEMP 36.2; O2SAT 100; BMI 23.7
[2024-10-16] MEDS: LACTATED RINGERS 1,000 ML 42 ML IV (12:40)
--- NOTE | 2024-10-16 15:26 | PM.PREOP ---
Pre-operative Note Interval Note History & Physical reviewed/Exam performed by Physician: Yes Changes to H&P: No
--- NOTE | 2024-10-16 15:57 | SUR.PREOP ---
Time out performed at 1534 Block start time 1535[] . Monitoring initiated and maintained throughout procedure. Oxygen and medications given per anesthesia provider. Patient remained stable throughout procedure, no adverse reactions noted. Block end time [1538].
[2024-10-16] MEDS: CEFAZOLIN 2 GM/100 ML PREMIX 100 ML IV (16:02)
[2024-10-16] MEDS: ACETAMINOPHEN IV 1,000 MG/100 ML VIAL 400 MG IV (16:08)
--- NOTE | 2024-10-16 16:22 | SUR.OPER ---
Supine on padded OR bed, head on pillow, arms secured on padded arm boards at <90 degrees abduction, legs uncrossed, safety belt at torso, tape over blanket over non operative lower legs. Bump placed on operative side under hip and lower extremity by surgeon. Final position approved by surgeon, all pressure points padded and protected.
[2024-10-16] MEDS: BUPIVACAINE 0.25% W/ EPI 30 ML VIAL INJ (16:31)
--- NOTE | 2024-10-16 17:06 | SUR.OPER ---
Blood sugar checked at 1700, results 129. Anesthesia notified and aware.
[2024-10-16 17:44] VITALS: BP 112/70; PULSE 63; RESP 14; TEMP 36.3; O2SAT 97
--- NOTE | 2024-10-16 17:49 | P.OP_ITS ---
Operative Date/Time/Diagnoses Date of procedure: 10/16/24 Time of procedure: 16:00 Pre-op diagnosis: First MTP arthritis right foot, sesamoiditis right foot, retained orthopedic hardware right foot, toe clawing. Peripheral neuropathy Charcot Post-op diagnosis: same Procedure & Clinicians Procedure: 1. Fusion 1st MTP joint right foot CPT code 72381 T5 2. Excision sesamoids medial and lateral great toe CPT code 78839 x2 for medial and lateral sesamoids 3. Removal of hardware Charcot just bolt right foot medial column 4. 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 She has been in and out of wound care for most of the year. Wounds are currently healed but chronically recur. She has been indicated for sesamoidectomy and 1st MTP fusion as well as extensor tendon lengthening to accommodate for hallux climbing and possible hardware removal of deep implants from Charcot reconstruction of the medial column bolt. The risks and benefits of the procedure have been discussed with the patient and given the opportunity to ask questions. The risks of surgery include but are not limited to infection, malunion, nonunion, persistence of pain, damage to nerves and blood vessels, posttraumatic arthritis, DVT, PE, coardiopulmonary complications and . The patient expressed a thorough understanding of the risks and benefits of surgery and has elected to proceed. Consent was signed. Surgeon: Ailyn Christine Click Yes if Unassisted: Yes Anesthesia Type: General and Local Operative Notes Findings: Claw hallux previous healed incisions from Charcot medial column fusion and hindfoot fusion. Very minimal 1st MTP range of motion less than 20?. Re asonable motion at IP joint tight extensor tendon. Healed area where there was a previous ulceration of the medial eminence as well as firm calluses around the medial and lateral sesamoids. No appearance of infection. Closure Type: primary Specimen(s): none sent Prosthetic devices, grafts, tissues, transplants, or devices: [place] 28 medium right 5 degree 1st MTP fusion plate with 2.7 locking and nonlocking screws 1 cc demineralized bone matrix Applied: none Estimated Blood Loss (mL): 20 Blood products transfused: none Tourniquet time (min): 60 Procedure in detail: The patient was seen in the preoperative area the site of surgery was marked informed consent confirmed this was the right foot. The patient was then brought back to the operating room by the anesthesia team a preoperative block was placed for postoperative pain control. The patient was positioned in the supine position with a an ipsilateral thigh bump. A well-padded thigh tourn iquet was applied. The right lower extremity was prepped and draped in the standard sterile fashion a formal time-out procedure was performed confirming the patient's side and site of surgery administration of the preoperative antibiotic. All were in agreement implants were in the room and accounted for. Attention turned to the right leg the Esmarch was used for exsanguination the tourniquet raised on the thigh to 250 mm of mercury. A dorsal medial incision was made centered over the MTP joint extending over the proximal phalanx and the 1st metatarsal this was made slightly more medial than normal so that I could ellipse out the area of a previous ulceration that had healed along the medial eminence. This was sharply excised with a scalpel and discarded. Then dissection a suppressive was taken down to the 1st MTP joint protecting and elevating the extensor hallucis longus tendon. This was contracted so was Z lengthened and repaired at the end of the case to remove tension from the repair and hallux clawing. There was full-thickness cartilage loss throughout the 1st MTP joint on the 1st metatarsal head. Rongeur was used to remove thin layer of bone to expose the medial column just bulge then the screwdriver from the paragon set was used to remove the Jobst bolt in order to remove this prominent hardware and allow facilitation of additional fixation. Next the TPS saw was used to plane down the medial eminence as well as the plantar prominence of the 1st metatarsal head some of this bone was salvage to use into the void from the graftable removal. Then careful dissection was taken to excise the medial sesamoid which was arthritic and prominent when palpating the plantar surface of the foot in the area of the previous callus and a area of risk for ulceration. The medial sesamoid was removed followed by the lateral sesamoid carefully removed protecting the flexor tendon. Once this was completed attention was turned to the 1st metatarsal head this was very carefully shaped by hand with the 21 Reamer and any remaining cartilage was removed with a rongeur down to good bleeding cancellous bone then the male Reamer from the paragon set size 21 was used to prepare the proximal phalanx down to bleeding cancellous bone. The 1st MTP joint was then fashioned and positioned. Some of the bone graft was packed into the 1st metatarsal phalangeal joint 1st MTP head devoid and this was positioned and then pinned. This was checked on multiplanar intraoperative fluoroscopy once alignment was appropriate the pin was advanced for bicortical fixation. Then a medium plate for a right 1st MTP fusion from the paragon set was utilized this was utilized with a 5 degree dorsiflexion which fit the position of the bone well. This was provisionally fixed in place with BB tacks. The foot was checked on a flat plate for appropriate excursion and tripod positioning. Then the distal holes were drilled and 3 locking 2.7 screws were placed. Then 1 cc of DBM bone graft putty was placed at the joint site. A 2.7 nonlocking screw was used as a compression screw in the oblong hole and just before final fixation the crossing BB tacks and K-wires were removed and final compression was obtained. Once this was completed the remaining 3 holes proximally were filled with 2.7 locking screws. Final x-rays were taken AP oblique and lateral planes confirming appropriate alignment and rigid fixation of the 1st MTP joint. Position was checked and tension of the EHL after the Z-lengthening was appropriate. And there were no palpable prominences medially or plantarly after the sesamoid excisions and medial eminence excision. Tourniquet was released hemostasis was achieved. The capsule was closed with 2-0 Vicryl and the subcutaneous tissue with 4-0 Monocryl and the skin with 4-0 nylon and 3-0 nylon. 0.25% Marcaine with epinephrine was injected for local anesthetic and the wound was covered with Xeroform gauze Webril and a posterior splint was applied in bentley tral position. The patient was awoken from anesthesia and taken to the recovery unit in good condition there were no immediate complications from this procedure. Counts were correct. Complications: none Post-operative Condition: stable Disposition: PACU Plan for aftercare: Nonweightbearing or touchdown for balance for about 2 weeks until incision healed then flatfoot and he will progressive weight-bearing in a postoperative boot or shoe. Aspirin for DVT prophylaxis for 6 weeks. Follow up in Orthopedic Clinic in 2-3 weeks as scheduled. Elevate around heart level as much as possible 1st 2 weeks after surgery. Keep splint clean dry and intact.
[2024-10-16 17:55] VITALS: BP 159/70; PULSE 81; RESP 18; TEMP 36.3; O2SAT 97
[2024-10-16 18:05] VITALS: BP 150/70; PULSE 77; RESP 16; TEMP 36.4; O2SAT 97
== END 2024-10-16 18:43 | disposition home or self-care (01) ==
PROVIDERS: PCP Physician Assistant Medical; Referring Provider Orthopaedic Surgery Foot and Ankle Surgery; Visit Provider Orthopaedic Surgery Foot and Ankle Surgery
PROC: (CPT 28750; principal; 2024-10-16 13:30)
DX: M19.071 Primary osteoarthritis, right ankle and foot (principal); M25.871 Other specified joint disorders, right ankle and foot; Q66.89 Other specified congenital deformities of feet; Z47.2 Encounter for removal of internal fixation device; E11.610 Type 2 diabetes mellitus with diabetic neuropathic arthropathy; G89.18 Other acute postprocedural pain; Z79.4 Long term (current) use of insulin
CPT/HCPCS: 28750; 28315; 20680; 28225; 64450; 73620; 76000; 82962; C1713; J0131; J0690; J1100; J2405; J2704; J3010